=== PATIENT | male | born 1990 | race Caucasian/White ===

== ENCOUNTER 2016-07-10 18:33 | Emergency (ER) | payer SELFPAY ==
[2016-07-10 18:38] VITALS: BP 153/65; PULSE 110; RESP 20; TEMP 100.1
[2016-07-10] MEDS ORDERED: BUPIVACAINE (PF) 0.5% 30 ML VIAL SQ STA (18:40)
--- NOTE | 2016-07-10 18:59 | ED ---
General Adult HPI - General Chief complaint: Dental/Oral Stated complaint: tooth ache Time Seen by Provider: 07/10/16 18:39 Source: patient, RN notes reviewed Mode of arrival: ambulatory Limitations: no limitations - History of Present Illness Initial comments: Patient is a 26-year-old male who presents emergency room today with chief complaint of increased dental pain to the right side of his lower jaw. Does admit to pain meds been ongoing for sometime but increased this past week. Does admit to a fractured tooth of tooth #31. Patient was pain locally in this area also has mild tenderness over tooth #2. Denies any drainage or discharge. Does feel like there is some swelling. Patient denies any complaints or symptoms. Patient denies any recent fever, chills, shortness of breath, chest pain, back pain, abdominal pain, nausea or vomiting, numbness or tingling, dysuria or hematuria, constipation or diarrhea, headaches or visual changes, or any other complaints. - Related Data Home Medications Medication Instructions Recorded Confirmed Buprenorphine HCl [Subutex] 4 mg SL DAILY 06/21/14 06/21/14 Previous Rx's Medication Instructions Recorded Ondansetron Odt [Zofran ODT] 4 mg PO Q8HR PRN #10 tab 06/21/14 cloNIDine HCL [Catapres] 0.1 mg PO TID #21 tab 06/21/14 Clindamycin HCl [Cleocin] 300 mg PO Q6HR 10 Days 07/10/16 Hydrocodone/Acetaminophen [[place] 1 each PO Q6HR PRN #10 tab 07/10/16 5-325] Ibuprofen [Motrin] 600 mg PO Q6HR PRN #40 day 07/10/16 Allergies Allergy/AdvReac Type Severity Reaction Status Date / Time Penicillins Allergy Unknown Verified 06/21/14 21:21 Review of Systems ROS Statement: Those systems with pertinent positive or pertinent negative responses have been documented in the HPI. ROS Other: All systems not noted in ROS Statement are negative. Past Medical History Past Medical History: No Reported History History of Any Multi-Drug Resistant Organisms: None Reported Additional Past Surgical History / Comment(s): left hand Past Psychological History: No Psychological Hx Reported Smoking Status: Current every day smoker Past Alcohol Use History: Occasional Past Drug Use History: Heroin, Opiates General Exam - General Exam Comments Initial Comments: General: The patient is awake and alert, in no distress, and does not appear acutely ill. Eye: Pupils are equal, round and reactive to light, extra-ocular movements are intact. No nystagmus. There is normal conjunctiva bilaterally. No signs of icterus. Ears, nose, mouth and throat: There are moist mucous membranes and no oral lesions. Patient does have a fractured tooth [place] 2 type fracture of tooth # 31. No swelling redness or erythema or abscess formation appreciated on exam. Neck: The neck is supple, there is no tenderness or JVD. Cardiovascular: There is a regular rate and rhythm. No murmur, rub or gallop is appreciated. Respiratory: Lungs are clear to auscultation, respirations are non-labored, breath sounds are equal. No wheezes, stridor, rales, or rhonchi. Musculoskeletal: Normal ROM, no tenderness. Strength 5/5. Sensation intact. Pulses equal bilaterally 2+. Neurological: A&O x 3. CN II-XII intact, There are no obvious motor or sensory deficits. Coordination appears grossly intact. Speech is normal. Skin: Skin is warm and dry and no rashes or lesions are noted. Psychiatric: Cooperative, appropriate mood & affect, normal judgment. Limitations: no limitations Course Vital Signs 07/10/16 18:35 Temperature 100.1 F H Pulse Rate 110 H Respiratory 20 Rate Blood Pressure 153/65 O2 Sat by Pulse 97 Oximetry Procedures - Procedures Initial comment: [id number] mixture of lidocaine 1% with bupivacaine 0.5% used to perform dental block to patient's right lower jaw. Tooth #31. Patient tolerated well. Did have relief. Medical Decision Making - Medical Decision Making Patient will be discharged home on antibiotics of clinic myosin due to penicillin ALLERGY. Patient given short prescription of pain medication advised follow-up dentist. Advised return if any symptoms increase or worsen or for any other concerns. Disposition Clinical Impression: Pain, dental Disposition: HOME SELF-CARE Condition: Good Instructions: Toothache (ED) Additional Instructions: Please follow-up with dentist over the next 2 days as discussed. Please use antibiotics and pain medication as prescribed. Please return to emergency room if any symptoms increase or worsen or for any other concerns. Prescriptions: Clindamycin HCl [Cleocin] 300 mg PO Q6HR 10 Days Hydrocodone/Acetaminophen [[place] 5-325] 1 each PO Q6HR PRN #10 tab PRN Reason: Pain Ibuprofen [Motrin] 600 mg PO Q6HR PRN #40 day PRN Reason: Pain Time of Disposition: 18:57
== END 2016-07-10 19:31 | disposition home or self-care (01) ==
LOC: EC 18:33
DX: K08.89 Other specified disorders of teeth and supporting structures (principal); S02.5XXA Fracture of tooth (traumatic), initial encounter for closed fracture; Z88.0 Allergy status to penicillin; F17.200 Nicotine dependence, unspecified, uncomplicated; Z79.891 Long term (current) use of opiate analgesic; X58.XXXA Exposure to other specified factors, initial encounter
CPT/HCPCS: 64400; 99282